=== PATIENT | female | born 1985 | race Caucasian/White ===

== ENCOUNTER 2022-12-02 17:57 | Emergency (ER) | payer MEDICAID ==
[~2022-12-02] VITALS: Ht 170.2 cm; Wt 84.1 kg
[2022-12-02 19:17] VITALS: TEMP 98
[2022-12-02] MEDS ORDERED: normal saline 1000ML IV soln IVB ONE (20:25)
[2022-12-02] MEDS ORDERED: naloxone 2mg/2ml inj IV ONE (20:25)
[2022-12-02 21:17] LABS: BASOPHILS # (AUTO) 0.2 X10'3 (0-0.2); BASOPHILS % (AUTO) 1.4 % (0-1); EOSINOPHILS # (AUTO) 0.5 X10'3 (0-0.9); EOSINOPHILS % (AUTO) 3.2 % (0-6); HEMATOCRIT 38.8 % (35.0-45.0); HEMOGLOBIN 12.9 g/dl (12.0-16.0); LYMPHOCYTES # (AUTO) 2.8 X10'3 (1.1-4.8); LYMPHOCYTES % (AUTO) 17.8 % (21-51); MEAN CORPUSCULAR HEMOGLOBIN 28.5 PG (27.0-31.0); MEAN CORPUSCULAR HGB CONC 33.3 g/dL (33.0-36.5); MEAN CORPUSCULAR VOLUME 85.4 FL (78-98); MEAN PLATELET VOLUME 6.8 FL (7.4-10.4); MONOCYTES # (AUTO) 0.8 X10'3 (0-0.9); MONOCYTES % (AUTO) 5.2 % (2-12); NEUTROPHILS # (AUTO) 11.2 X10'3 (1.8-7.7); NEUTROPHILS % (AUTO) 72.4 % (42-75); PLATELET COUNT 381 X10'3 (140-440); RED BLOOD COUNT 4.54 X10'6 (4.20-5.60); RED CELL DISTRIBUTION WIDTH 13.9 % (11.5-14.5); WHITE BLOOD COUNT 15.4 X10'3 (4.5-11.0)
[2022-12-02 21:27] LABS: ALANINE AMINOTRANSFERASE 17 U/L (12-78); ALBUMIN 3.6 G/DL (3.4-5.0); ALKALINE PHOSPHATASE 100 IU/L (46-116); ANION GAP 7 (8-16); ASPARTATE AMINO TRANSFERASE 9 U/L (10-37); BILIRUBIN,TOTAL 0.2 MG/DL (0.1-1.0); BLOOD UREA NITROGEN 9 MG/DL (7-18); BUN/CREATININE RATIO 8.7 (10.0-20.0); CALCIUM 9.7 MG/DL (8.5-10.1); CHLORIDE 108 MMOL/L (99-107); CREATININE 1.04 MG/DL (0.40-0.90); GLUCOSE 123 MG/DL (70-104); POTASSIUM 3.8 MMOL/L (3.5-5.1); SODIUM 142 MMOL/L (135-145); TOTAL CARBON DIOXIDE 26.6 MMOL/L (24-32); TOTAL PROTEIN 7.3 G/DL (6.4-8.2); eCRCL 71 ML/MIN; eGFR 59 ML/MIN
[2022-12-02 21:35] LABS: ETHANOL < 10 MG/DL (<10)
[2022-12-02 23:07] LABS: BILIRUBIN,URINE NEGATIVE (Neg); CLARITY,URINE SLIGHTLY CLOUDY (Clear); COLOR,URINE YELLOW (Yellow); GLUCOSE, URINE NEGATIVE (Neg); KETONES,URINE NEGATIVE (Neg); LEUKOCYTE ESTERASE ,URINE NEGATIVE (Neg); NITRITES, URINE NEGATIVE (Neg); OCCULT BLOOD,URINE SMALL (Neg); PH,URINE 6.5 (4.8-8.0); PROTEIN,URINE NEGATIVE (Neg); UROBILINOGEN,URINE 0.2 E.U/dL (0.2-1.0)
[2022-12-02 23:24] LABS: UA COLLECTION TYPE CLN CATCH MIDSTREAM
[2022-12-02 23:26] LABS: SQUAMOUS EPITHELIAL CELL,UR MANY /LPF (FEW)
[2022-12-02 23:27] LABS: BACTERIA,URINE FEW /HPF (Neg)
[2022-12-02 23:29] LABS: URINE AMPHETAMINE SCREEN NEGATIVE (Neg); WBC,URINE NONE SEEN /HPF (0-4)
[2022-12-02 23:30] LABS: URINE BARBITUATE SCREEN NEGATIVE (Neg); URINE BENZODIAZEPINES SCREEN NEGATIVE (Neg); URINE CANNABINOID SCREEN NEGATIVE (Neg); URINE COCAINE SCREEN NEGATIVE (Neg); URINE OPIATE SCREEN NEGATIVE (Neg); URINE PHENCYCLIDINE SCREEN NEGATIVE (Neg)
--- NOTE | 2022-12-02 23:58 | NUR ---
pt does have slurred speech and drowziness at times
[2022-12-03 07:05] VITALS: BP 115/69; PULSE 76; RESP 16; O2SAT 95
--- NOTE | 2022-12-03 07:12 | NUR ---
Attempted to call [facility], unable to contact anybody from the phone number provided [phone], the recorded voice message says "call cannot be completed, please try again later". The main office number searched from the internet [phone] was called as well, no answer, left message to call ER back
--- NOTE | 2022-12-03 08:14 | NUR ---
Spoke to the fiscal manager Darrell at [facility] about patient being discharge and need transportation to get back to the facility. Darrell requested me to call back in about 15 minutes as we have to wait for the next person on duty to arrive to coordinate the transportation
== END 2022-12-03 09:16 | disposition home or self-care (01) ==
LOC: ER 17:57
DX: T50.991A Poisoning by other drugs, medicaments and biological substances, accidental (unintentional), initial encounter (principal); R11.10 Vomiting, unspecified; R47.81 Slurred speech; F15.90 Other stimulant use, unspecified, uncomplicated; Z79.899 Other long term (current) drug therapy; Y92.89 Other specified places as the place of occurrence of the external cause
CPT/HCPCS: 36415; 70450; 71045; 80053; 80305; 80320; 81001; 82140; 82948; 84484; 85025; 93005; 96361; 96374; 99285; J2310; J7030

== ENCOUNTER 2023-03-15 18:20 | Emergency (ER) | payer MEDICAID ==
[~2023-03-15] VITALS: Ht 170.2 cm; Wt 83.2 kg
[2023-03-15 19:31] LABS: BASOPHILS # (AUTO) 0.1 X10'3 (0-0.2); BASOPHILS % (AUTO) 0.6 % (0-1); EOSINOPHILS # (AUTO) 0.6 X10'3 (0-0.9); EOSINOPHILS % (AUTO) 3.7 % (0-6); HEMATOCRIT 38.6 % (35.0-45.0); HEMOGLOBIN 12.7 g/dl (12.0-16.0); LYMPHOCYTES # (AUTO) 3.2 X10'3 (1.1-4.8); LYMPHOCYTES % (AUTO) 19.1 % (21-51); MEAN CORPUSCULAR HEMOGLOBIN 28.1 PG (27.0-31.0); MEAN CORPUSCULAR HGB CONC 32.8 g/dL (33.0-36.5); MEAN CORPUSCULAR VOLUME 85.6 FL (78-98); MEAN PLATELET VOLUME 6.7 FL (7.4-10.4); MONOCYTES # (AUTO) 1.8 X10'3 (0-0.9); MONOCYTES % (AUTO) 10.5 % (2-12); NEUTROPHILS # (AUTO) 11.1 X10'3 (1.8-7.7); NEUTROPHILS % (AUTO) 66.1 % (42-75); PLATELET COUNT 354 X10'3 (140-440); RED BLOOD COUNT 4.51 X10'6 (4.20-5.60); RED CELL DISTRIBUTION WIDTH 14.3 % (11.5-14.5); WHITE BLOOD COUNT 16.9 X10'3 (4.5-11.0)
[2023-03-15 19:36] LABS: HCG SERUM QL NEGATIVE
[2023-03-15 19:50] LABS: ALANINE AMINOTRANSFERASE 11 U/L (12-78); ALBUMIN 3.8 G/DL (3.4-5.0); ALBUMIN/GLOBULIN RATIO 1.1 (1.1-1.5); ALKALINE PHOSPHATASE 92 IU/L (46-116); ANION GAP 12 (8-16); ASPARTATE AMINO TRANSFERASE 8 U/L (10-37); BILIRUBIN,TOTAL 0.3 MG/DL (0.1-1.0); BLOOD UREA NITROGEN 8 MG/DL (7-18); BUN/CREATININE RATIO 8.6 (10.0-20.0); CALCIUM 9.4 MG/DL (8.5-10.1); CHLORIDE 105 MMOL/L (99-107); CREATININE 0.93 MG/DL (0.40-0.90); GLUCOSE 99 MG/DL (70-104); POTASSIUM 4.2 MMOL/L (3.5-5.1); SODIUM 139 MMOL/L (135-145); TOTAL CARBON DIOXIDE 21.9 MMOL/L (24-32); TOTAL PROTEIN 7.4 G/DL (6.4-8.2); eCRCL 78 ML/MIN; eGFR 67 ML/MIN
[2023-03-15] MEDS: normal saline 1000ML IV soln IVB ONE ×2 (22:39)
[2023-03-15] MEDS: levoFLOXACIN-Levaquin 750MG/D5 150 ML IV ONE (22:44)
[2023-03-15] MEDS: metroNIDAZOLE-Flagyl 500mg/NS 100 ML IV ONE (22:46)
[2023-03-15] MEDS ORDERED: LEVO50TA66 PO (22:58)
[2023-03-15] MEDS ORDERED: METF-438 PO (22:58)
[2023-03-15] MEDS ORDERED: TRAZ-256 PO (22:58)
[2023-03-15] MEDS ORDERED: FAMO40TA58 PO (22:58)
[2023-03-15] MEDS ORDERED: BUPR300T53 PO (22:58)
[2023-03-15] MEDS ORDERED: LITH300C PO (22:58)
[2023-03-15] MEDS ORDERED: CHOL20002 PO (22:58)
[2023-03-15] MEDS ORDERED: CLOZ50TA9 PO (22:58)
[2023-03-15] MEDS ORDERED: CLOZ200T8 PO (22:58)
[2023-03-15] MEDS ORDERED: DOCU-149 PO (22:58)
[2023-03-15] MEDS ORDERED: OMEP20TA23 PO (22:58)
[2023-03-15] MEDS ORDERED: MIRA25TA PO (22:58)
[2023-03-15] MEDS ORDERED: LURA60TA PO (22:58)
[2023-03-15] MEDS ORDERED: BENZ1TAB93 PO (22:58)
[2023-03-15] MEDS ORDERED: LORA10TA7 PO (22:58)
[2023-03-15] MEDS ORDERED: POLY119P2 PO (22:58)
[2023-03-16] MEDS ORDERED: vancomycin inj 1,000 MG in normal saline 250ml IV soln 250 ML IV ONE (00:45)
[2023-03-16 01:12] LABS: BILIRUBIN,URINE NEGATIVE (Neg); CLARITY,URINE SLIGHTLY CLOUDY (Clear); COLOR,URINE YELLOW (Yellow); GLUCOSE, URINE NEGATIVE (Neg); KETONES,URINE NEGATIVE (Neg); LEUKOCYTE ESTERASE ,URINE NEGATIVE (Neg); NITRITES, URINE NEGATIVE (Neg); OCCULT BLOOD,URINE NEGATIVE (Neg); PROTEIN,URINE NEGATIVE (Neg); UROBILINOGEN,URINE 0.2 E.U/dL (0.2-1.0)
[2023-03-16 01:15] LABS: UA COLLECTION TYPE CLN CATCH MIDSTREAM
[2023-03-16 01:21] LABS: BACTERIA,URINE NONE SEEN /HPF (Neg); MUCUS STRANDS NONE SEEN /LPF (Neg); RBC,URINE 0-2 /HPF (0-2); SQUAMOUS EPITHELIAL CELL,UR FEW /LPF (FEW); WBC,URINE NONE SEEN /HPF (0-4)
[2023-03-16] MEDS: vancomycin/NS 1 GM ADD-VANTAGE 250 ML IV ONE (01:54)
[2023-03-16] MEDS: normal saline 1000ml 1,000 ML IV ONE (02:07)
[2023-03-16] MEDS: metroNIDAZOLE-Flagyl 500mg/NS 100 ML IV SCH (06:13)
[2023-03-16] MEDS ORDERED: buPROPion 100mg tablet PO SCH ×2 (10:35→10:51)
[2023-03-16] MEDS ORDERED: benztropine 1mg tablet PO SCH (10:35)
[2023-03-16] MEDS ORDERED: cholecalciferol (vitamin D3) 1,000 unit (25mcg) tablet PO SCH (10:35)
[2023-03-16] MEDS ORDERED: lithium carbonate 150mg capsule PO SCH (10:49)
[2023-03-16] MEDS ORDERED: metFORMIN 500mg tablet PO SCH (10:54)
[2023-03-16] MEDS: metFORMIN 500mg tablet PO SCH (11:15)
[2023-03-16] MEDS: loratadine 10mg tablet PO SCH (11:30)
[2023-03-16] MEDS: pantoprazole 40mg Tablet.DR PO SCH (11:30)
[2023-03-16] MEDS: benztropine 1mg tablet PO SCH (11:31)
[2023-03-16] MEDS: docusate sod 100mg capsule PO SCH (11:31)
[2023-03-16] MEDS: lurasidone 60mg tablet PO SCH (11:31)
[2023-03-16] MEDS: levoTHYROXINE 25mcg tablet PO SCH (11:31)
[2023-03-16] MEDS: buPROPion SR 150mg tablet PO SCH (11:32)
[2023-03-16] MEDS: cholecalciferol (vitamin D3) 1,000 unit (25mcg) tablet PO SCH (11:32)
[2023-03-16] MEDS: lithium carbonate 150mg capsule PO SCH (11:36)
[2023-03-16] MEDS ORDERED: CLOZAPINE 25 MG oral disintegrating tablet PO SCH (11:42)
[2023-03-16] MEDS: clozapine 25mg tablet PO SCH (12:44)
[2023-03-16] MEDS: VANCOmycin 1250MG/NS 250ml Bag 250 ML IV SCH (16:57)
[2023-03-16 18:53] VITALS: TEMP 97.7
[2023-03-16] MEDS: clindamycin-Cleocin 900mg/D5W 50 ML IV ONE (19:29)
[2023-03-16] MEDS: dexamethasone sod phosphate 10mg/ml inj IV STA (19:29)
[2023-03-16] MEDS ORDERED: IBUP-1984 PO (19:34)
[2023-03-16] MEDS ORDERED: CLIN300C3 PO (19:34)
[2023-03-16 19:58] VITALS: BP 116/76; PULSE 80; RESP 16; O2SAT 96
[2023-03-16] MEDS ORDERED: LITHIUM CARBONATE PO SCH (20:00)
[2023-03-16] MEDS ORDERED: clozapine 100mg tablet PO SCH (21:00)
[2023-03-16] MEDS ORDERED: mirabegron 25mg ER tablet PO SCH (21:00)
[2023-03-16] MEDS ORDERED: polyethylene glycol 3350 17gm powd pack PO SCH (21:00)
[2023-03-16] MEDS ORDERED: traZODone 50mg tablet PO SCH (21:00)
[2023-03-16] MEDS ORDERED: levoFLOXACIN-Levaquin 750MG/D5 150 ML IV SCH (22:00)
[2023-03-17] MEDS ORDERED: lurasidone 60mg tablet PO SCH (08:00)
[2023-03-17] MEDS ORDERED: famotidine 20mg tablet PO SCH (08:00)
[2023-03-18] MEDS ORDERED: VANCOMYCIN LEVEL IV ONE (03:30)
== END 2023-03-16 20:10 | disposition home or self-care (01) ==
LOC: ER 18:21
DX: L03.211 Cellulitis of face (principal); K04.7 Periapical abscess without sinus; Z79.1 Long term (current) use of non-steroidal anti-inflammatories (NSAID); Z79.899 Other long term (current) drug therapy; Z79.2 Long term (current) use of antibiotics
CPT/HCPCS: 36415; 70486; 80053; 81001; 83605; 84145; 84703; 85025; 85651; 86140; 87040; 96365; 96366; 96367; 96368; 96375; 99285; J1100; J1956; J3370; J3490; J7030